=== PATIENT | female | born 1995 | race Caucasian/White ===

== ENCOUNTER 2023-10-13 17:18 | Emergency (ER) | payer OTHER, SELFPAY ==
[2023-10-13 17:19] VITALS: BP 108/73
--- NOTE | 2023-10-13 17:32 | ED.GENMED ---
History of Present Illness
General
Chief Complaint: Skin Surface Trauma
Time Seen by Provider: 10/13/23 17:32
History of Present Illness
History of Present Illness:
HPI: The patient presents with a laceration of the right ankle near the Achilles. She reports no dysfunction at the ankle. She was concerned because of ongoing bleeding. She was moving a heavy piece of furniture. Her tetanus status is
up-to-date. She denies any other injury.
EXAM:
GENERAL: Well appearing in no distress
NEUROLOGIC: Excellent strength all extremities, no coordination deficits
PSYCHIATRIC: Appropriate mental status, normal insight and judgement
EXTREMITIES: 2.5 cm laceration just posterior to the right Achilles and slightly medial, there is no dysfunction with Achilles function, no bony tenderness nontender, no edema, moves all extremities equally
SKIN: As above
TIME OF INITIAL ENCOUNTER: 5:40 PM
NUMBER AND COMPLEXITY OF PROBLEMS ADDRESSED AT THE ENCOUNTER
� Chronic conditions affecting care: Denies any significant past medical history
� Acute Exacerbation and/or Progression of Chronic Illness: This is an acute problem
� Differential Diagnosis includes: Laceration, tendon rupture not likely based on physical examination
AMOUNT AND/OR COMPLEXITY OF DATA TO BE REVIEWED AND ANALYZED
� I performed an independent evaluation of and my interpretation is:
EKG:
CT:
X-rays:
Laboratory Studies:
Other:
� Review of other/old records: No old records available for review in [facility]
� Clinical information was obtained by an independent historian:
� Prescriptions/Medications Considered but not given:
� Further testing considered but not performed: No indication for ex
RISK OF COMPLICATIONS AND/OR MORBIDITY OR MORTALITY OF PATIENT MANAGEMENT
� Social determinants of health affecting care: Lives at home with
� Discussion with other providers:
� Escalation of care including admission/observation vs risk of discharge considered: Wound was copiously irrigated, cleaned, and sutured and bleeding is controlled.
Phy Exam
Physical Exam
Physical Exam:
See HPI
Course
Vital Signs
Initial and Last Documented VS:
Initial Vital Signs
Temp Pulse Resp BP Pulse Ox
98.1 F 64 16 108/73 100
10/13/23 17:19 10/13/23 17:19 10/13/23 17:19 10/13/23 17:19 10/13/23 17:19
Last Documented Vital Signs
Temp Pulse Resp BP Pulse Ox
98.1 F 64 16 108/73 100
10/13/23 17:19 10/13/23 17:19 10/13/23 17:19 10/13/23 17:19 10/13/23 17:19
Procedures
Laceration Closure
Right Ankle:
Status of Wound: clean
Description of Wound Edges: sharp
Anesthesia: 2% Lidocaine with epi
Revision/Debridement: routine- no revision
Type of Closure: single layer closure
Skin Closure Material: 4-0 nylon
Number of sutures: 3
*Critical Care Note
Total Time (30-74mins, 75-104mins- exclusive of procedures): Not Applicable
ED Attending Note
-
Portions of this chart may have been created with voice recognition software.� Occasional wrong word or��sound alike� substitutions may have occurred due to the inherent limitations of voice recognition software.
Discharge Plan
Departure
Patient Disposition: Home (Routine Discharge)
Date of Disposition: 10/13/23
Time of Disposition: 17:55
Patient with high blood pressure during this ER visit?: Yes
Discharge Problem:
Laceration
Instructions: Laceration Repair With Stitches (DC)
Referrals:
Yaniv Licona DO [Family Provider] -
Activity Restrictions/Additional Instructions:
I recommend having the stitches removed by your primary care doctor in approximately 10 days. Return here if worse.
Interventions
Interventions:
*Risk Screen - Suicide Last Done: 10/13/23 17:27
*General Assessment Last Done: 10/13/23 17:27
*Neglect/Abuse Screening Last Done: 10/13/23 17:27
ED- Fall Risk Assessment Last Done: 10/13/23 17:27
*Nursing Disposition Last Done: 10/13/23 17:57
ED-Skin Assessment Last Done: 10/13/23 17:27
Discharge Date and Time
Print Language: KOSOVAN
== END 2023-10-13 18:17 | disposition home or self-care (01) ==
LOC: EMR 17:18
PROVIDERS: EMERGENCY PHYSICIAN Emergency Medicine; FAMILY PHYSICIAN Family Medicine
DX: S91.011A Laceration without foreign body, right ankle, initial encounter (principal); X58.XXXA Exposure to other specified factors, initial encounter
CPT/HCPCS: 99282; 12001

== ENCOUNTER → 2024-09-24 13:38 | Outpatient (REF) | payer OTHER, SELFPAY | LOC: PNTC 13:38 | PROVIDERS: ATTENDING PHYSICIAN Obstetrics & Gynecology | DX: Z34.90 Encounter for supervision of normal pregnancy, unspecified, unspecified trimester (principal) | CPT/HCPCS: 36415; 86850; 86900; 86901; 96372; J2790 ==

== ENCOUNTER 2024-12-19 13:13 | Observation (INO) | payer OTHER, SELFPAY ==
[2024-12-19 13:23] VITALS: BP 111/67; BMI 28.3
== END 2024-12-19 14:50 | disposition home or self-care (01) ==
LOC: LDRP 13:13
PROVIDERS: ADMITTING PHYSICIAN Student in an Organized Health Care Education/Training Program; FAMILY PHYSICIAN Family Medicine
DX: O48.0 Post-term pregnancy (principal); Z3A.41 41 weeks gestation of pregnancy
CPT/HCPCS: 36415; 59025; 76815; 86850; 86870; 86900; 86901; G0378

== ENCOUNTER 2024-12-20 20:10 | Inpatient (IN) | payer OTHER, SELFPAY ==
[2024-12-20 20:41] VITALS: BP 121/57; BMI 30.2
[2024-12-20 21:22] LABS: Hematocrit 37.5 % (37.0-47.0); Hemoglobin 13.2 g/dL (12.0-16.0); Mean Corp Hgb Conc. 35.2 g/dL (33.0-37.0); Mean Corpuscular Volume 89.5 fL (81.0-99.0); Nucleated Red Blood Cells % 0 %; Platelet Count 177 10^3/uL (130-400); Red Cell Dist. Width 12.8 % (11.5-14.5)
[2024-12-20] MEDS: SUBLIMAZE 100 MCG EPIDURAL (21:54)
[2024-12-20] MEDS: FENTANYL/BUPIVACAINE 100 EPIDURAL (21:55)
[2024-12-20] MEDS: LR 1000 IV (23:14)
[2024-12-21] MEDS: LR 1000 IV (04:44)
[2024-12-21] MEDS: PITOCIN 30 UNITS/NSS 500 ML IV (07:00)
[2024-12-21] MEDS: MOTRIN 600 MG PO ×2 (10:18→16:23)
[2024-12-21] MEDS: COLACE 100 MG PO (20:02)
[2024-12-21] MEDS: TYLENOL 650 MG PO (20:06)
[2024-12-22] MEDS: MOTRIN 600 MG PO ×2 (00:02→06:45)
[2024-12-22 05:02] LABS: Hematocrit 34.5 % (37.0-47.0); Hemoglobin 12.0 g/dL (12.0-16.0)
[2024-12-22] MEDS: RHOGAM 300 MCG IM (08:41)
[2024-12-22] MEDS: PRENATAL PLUS 1 TABLET PO (08:41)
[2024-12-22] MEDS: FOLVITE 1 MG PO (08:41)
[2024-12-22] MEDS: COLACE 100 MG PO (08:41)
[2024-12-23 14:48] LABS: Syphilis/T. pallidum Ab Reflex Negative (Negative)
== END 2024-12-22 12:00 | disposition home or self-care (01) | DRG 807 ==
LOC: LDRP 20:10
PROVIDERS: Student in an Organized Health Care Education/Training Program; ADMITTING PHYSICIAN Obstetrics & Gynecology
PROC: 10E0XZZ Delivery of Products of Conception, External Approach (ICD-10-PCS; 2024-12-21)
PROC: 10907ZC Drainage of Amniotic Fluid, Therapeutic from Products of Conception, Via Natural or Artificial Opening (ICD-10-PCS; 2024-12-21)
PROC: 0KQM0ZZ Repair Perineum Muscle, Open Approach (ICD-10-PCS; 2024-12-21)
PROC: 3E0234Z Introduction of Serum, Toxoid and Vaccine into Muscle, Percutaneous Approach (ICD-10-PCS; 2024-12-22)
DX: O48.0 Post-term pregnancy (principal); Z37.0 Single live birth; Z3A.41 41 weeks gestation of pregnancy; O70.1 Second degree perineal laceration during delivery
CPT/HCPCS: 85014; 85018; 85025; 85461; 86780; 86850; 86900; 86901; J2790

== ENCOUNTER → 2025-03-03 11:15 | Outpatient (REF) | payer OTHER, SELFPAY | LOC: RAD 11:15 | PROVIDERS: ATTENDING PHYSICIAN Obstetrics & Gynecology; FAMILY PHYSICIAN Family Medicine | DX: N93.9 Abnormal uterine and vaginal bleeding, unspecified (principal) | CPT/HCPCS: 76830; 76856 ==